=== PATIENT | female | born 1995 | race Caucasian/White ===

== ENCOUNTER 2023-12-03 05:57 | Inpatient (IN) | payer OTHER, SELFPAY ==
[2023-12-03] VITALS (119 sets, daily range): BP systolic 82–149; BP diastolic 37–113; PULSE 74–120; RESP 12–20; TEMP 36.3–37.2; O2SAT 95–100; BMI 40.1
--- NOTE | 2023-12-03 06:43 | LDADM ---
This patient, Belinda Reid, was admitted to Labor/Delivery/Recovery 104 on 12/03/23 at 05:57. Plans for labor, pain management and were discussed with patient. Patient/family oriented to hospital policies and general routines including ID bracelet, bed and alarms, visiting hours, pain management, procedures, bathroom and other care routines, personal items, smoking policy, room service/diet and guest tray routines, infant security routines, and visiting hours. Patient/Family are encouraged to report perceived risks to care and to ask questions if they do not understand what they are told or what they should do. See OBIX for further documentation.
[2023-12-03] MEDS: OXYTOCIN 30 UNITS/NS 500 ML 30 UNITS/500 ML BAG IV CONT (07:00)
[2023-12-03] MEDS: LACTATED RINGERS 1,000 ML 125 ML IV CONT ×3 (07:01→13:00)
[2023-12-03 07:08] LABS: Basophils Percent Auto 0.4 % (0.2-1.2); Eosinophils Percent Auto 0.4 % (0-4.4); Hematocrit 35.4 % (37.0-47.0); Hemoglobin 11.1 g/dL (12.0-15.0); Immature Granulocyte Absolute 0.03 K/mm3 (0.00-0.031); Immature Granulocyte Percent A 0.4 % (0-0.5); Lymphocytes Absolute Auto 1.66 K/mm3 (0.9-3.2); Lymphocytes Percent Auto 19.5 % (18.3-44.2); Mean Corpuscular HGB Conc 31.4 g/dl (32-36); Mean Corpuscular Hemoglobin 29.4 pg (26-34); Mean Corpuscular Volume 93.7 fl (80-100); Mean Platelet Volume 10.8 fl (7.4-10.4); Monocytes Absolute Auto 0.7 K/mm3 (0.1-0.6); Neutrophils Absolute Auto 6.1 K/mm3 (1.3-6.7); Neutrophils Percent Auto 71.3 % (45.5-73.1); Platelet Count Result 247 k/mm3 (150-375); Red Blood Count 3.78 M/mm3 (4.2-5.4); Red Cell Distribution Width 13.8 % (11.5-14.5); White Blood Count 8.5 K/mm3 (4.5-10.0)
[2023-12-03 07:17] LABS: Alanine Aminotransferase 23 U/L (6-35); Albumin Level 3.6 g/dL (3.5-5.1); Alkaline Phosphatase 184 U/L (38-126); Anion Gap 10 mmol/L (8-16); Aspartate Amino Transferase 23 U/L (14-36); Bilirubin,Total 0.4 mg/dL (0.2-1.3); Blood Urea Nitrogen 7 mg/dL (7-17); Calcium 8.7 mg/dL (8.4-10.2); Carbon Dioxide 18 mmol/L (22-30); Chloride 106 mmol/L (98-107); Estimated CRCL calculation 150 ml/min; Estimated Glomerular Filt Rate > 60; Glucose 83 mg/dL (65-110); Potassium 3.8 mmol/L (3.4-5.0); Sodium 134 mmol/L (137-145)
--- NOTE | 2023-12-03 08:16 | WPDOBADMIT ---
Obstetrics - Admit Note Admission Note: record reviewed. No pertinent additions to the history and/or any subsequent changes in the physical findings that are not consistent with the expected course of the were found. Additions to the history and/or subsequent changes in the physical findings follow. IOl, gestational HTN, SVE /-1 AROM moderate amount of clear odorless fluid
[2023-12-03] MEDS: SODIUM CHLORIDE 0.9% IV 300 ML 600 ML I-UTERINE (09:20)
--- NOTE | 2023-12-03 09:48 | WPDANESEPP ---
Anes - Eval Pre Procedure Procedure: labor pain management Date/Time: 12/03/23 09:48 Surgeon: April Preop Diagnosis: pain during labor Pre Op Diagnosis: IOL Patient Data Age: 28 Gender: F Height: 1.68 m Weight: 113 kg Last Vital Signs Temp 97.4 F L 12/03/23 07:30 Pulse 95 12/03/23 09:46 BP 125/59 L 12/03/23 09:46 Pulse Ox 96 12/03/23 09:45 O2 Del Method Room Air 12/03/23 06:40 Allergies Allergy/AdvReac Type Severity Reaction Status Date / Time succinylcholine Allergy Unknown Other Verified 12/03/23 06:53 Home Medications Medication Instructions Recorded Confirmed Type levothyroxine 50 mcg tablet 50 mcg PO DAILY 11/23/23 12/03/23 History vits no.126-ferrous fum 1 tablet PO DAILY 11/23/23 12/03/23 History 28 mg iron-folic acid 800 mcg tablet (Classic ) pantoprazole 40 mg tablet,delayed 40 mg PO DAILY 12/03/23 12/03/23 History release Laboratory Tests 12/03/23 12/03/23 06:18 06:19 WBC 8.5 K/mm3 (4.5-10.0) RBC 3.78 L M/mm3 (4.2-5.4) Hgb 11.1 L g/dL (12.0-15.0) Hct 35.4 L % (37.0-47.0) MCV 93.7 fl (80-100) MCH 29.4 pg (26-34) MCHC 31.4 L g/dl (32-36) RDW 13.8 % (11.5-14.5) Plt Count 247 k/mm3 (150-375) MPV 10.8 H fl (7.4-10.4) Immature Gran % (Auto) 0.4 % (0-0.5) Neut % (Auto) 71.3 % (45.5-73.1) Lymph % (Auto) 19.5 % (18.3-44.2) [place] % (Auto) 8.0 % (2.6-8.5) Eos % (Auto) 0.4 % (0-4.4) Baso % (Auto) 0.4 % (0.2-1.2) Lymph # (Auto) 1.66 K/mm3 (0.9-3.2) [place] # (Auto) 0.7 H K/mm3 (0.1-0.6) Eos # (Auto) 0.0 K/mm3 (0-0.3) Baso # (Auto) 0.0 K/mm3 (0.0-0.1) Abs Immat Gran (auto) 0.03 K/mm3 (0.00-0.031) Absolute Neuts (auto) 6.1 K/mm3 (1.3-6.7) Absolute Nucleated RBC 0.0 K/mm3 (0.0-0.012) Nucleated RBC % 0.0 % (0.0-0.2) Sodium 134 L mmol/L (137-145) Potassium 3.8 mmol/L (3.4-5.0) Chloride 106 mmol/L (98-107) Carbon Dioxide 18 L mmol/L (22-30) Anion Gap 10 mmol/L (8-16) BUN 7 mg/dL (7-17) Creatinine 0.60 L mg/dL (0.7-1.0) Estim Creat Clear Calc 150 ml/min Estimated GFR > 60 (59 - ) Glucose 83 mg/dL (65-110) Calcium 8.7 mg/dL (8.4-10.2) Total Bilirubin 0.4 mg/dL (0.2-1.3) AST 23 U/L (14-36) ALT 23 U/L (6-35) Alkaline Phosphatase 184 H U/L (38-126) Total Protein 8.0 g/dL (6.3-8.2) Albumin 3.6 g/dL (3.5-5.1) RPR Pending Blood Type A Positive Antibody Screen Negative Patient hx anesthesia problems: none Family hx anesthesia problems: none Results Review: All pre-operative results and documents have been reviewed as part of the pre-operative evaluation. [facility] Past Medical History Medical History Calculus of gallbladder with acute on chronic cholecystitis Chronic cholecystitis with calculus Family history of cholecystectomy Hypothyroid Pain during labor Family History Family History Mother Hypertension Hypothyroid Grandparent Hypertension Grandparent No problems noted. Father Hypertension Hypothyroid Social History Social History Smoking status: Never smoker Alcohol intake: never Substance use: never Do You Feel Safe in your Home?: Yes Lack of Transportation: No Lack of Food: Never True Current Housing: I Have Housing Concerned About Future Housing: No Difficulty Paying Gas/Electric Bills: No Difficulty Paying for Meds: No Currently Unemployed: No Education: High School Diploma/GED Difficulty w/ Childcare or Family Care: No Spiritual car
[2023-12-03] MEDS: SODIUM CHLORIDE 0.9% IV 1,000 ML 150 ML I-UTERINE (09:50)
[2023-12-03 10:58] LABS: Rapid Plasma Reagin Non-Reactive (NonReactive)
--- NOTE | 2023-12-03 12:22 | PM.IMHP ---
H&P: HPI History of Present Illness Date/Time: 12/03/23 12:22 Chief Complaint: Labor Narrative: this patient is a 28-year-old multiparous female at term who was induced for gestational hypertension. The patient has begun to have vaginal bleeding. She has some nonreassuring heart tones. She passed a clot earlier after rupture of membranes. We are concerned about abruption. She denies any nausea, vomiting, fever, chills. She denies any chest pain shortness of breath the she understands the procedure. It was explained to her. She understands the procedure. Was explained to her in detail. She understands risk. She understands there is maker that result in hospitalization, more surgery, and severe illness. She understands risk of hemorrhage infection. We have agreed to proceed with delivery. She she understands risks, benefits, and alternatives. Review of Systems Review of Systems: All systems reviewed & are unremarkable except as noted in HPI and below Constitutional: Constitutional: Denies chills, Denies fatigue, Denies fever(s) and Denies weakness Eyes: Eyes: Denies blurry vision, Denies change in vision, Denies loss of peripheral vision, Denies loss of vision, Denies other visual disturbances and Denies eye pain ENT: Denies vertigo, Denies dizziness, Denies hearing loss, Denies mouth pain, Denies nasal obstruction, Denies neck mass and Denies neck pain Cardiovascular: Cardiovascular: Denies chest pain, Denies diaphoresis, Denies syncope, Denies leg edema and Denies dyspnea Respiratory: Respiratory: Denies chest congestion, Denies cough, Denies hemoptysis, Denies dyspnea and Denies wheezing Gastrointestinal: Gastrointestinal: Denies abdominal pain, Denies constipation, Denies diarrhea, Denies nausea and Denies vomiting Genitourinary: Genitourinary: Denies hematuria, Denies change in libido, Denies nocturia, Denies genital lesions, Denies flank pain and Denies urinary urgency Musculoskeletal: Musculoskeletal: Denies abnormal gait, Denies back pain, Denies myalgias, Denies arthralgias, Denies joint swelling, Denies muscle weakness and Denies neck pain Integumentary/Breasts: Skin/Breast: Denies swelling, Denies breast pain, Denies breast mass, Denies dry skin, Denies nipple discharge, Denies unusual bruising and Denies jaundice Neurologic: Denies Neuro-related abnormal movements, Denies Abnormal speech present, Denies abnormal gait, Denies behavioral changes, Denies confusion, Denies vertigo, Denies dizziness, Denies syncope, Denies loss of vision, Denies memory loss, Denies convulsions and Denies weakness Psychiatric: Psychiatric: Denies abnormal sleep pattern, Denies behavioral changes, Denies change in libido, Denies confusion, Denies depression, Denies anhedonia and Denies memory loss Endocrine: Endocrine: Reports no additional endocrine complaints, Denies change in libido and Denies fatigue Hematologic/Lymphatic: Hematologic/Lymphatic: Reports no additional hematologic/lymphatic complaints Allergic/Immunologic: Allergic/Immunologic: Reports no additional allergic/immunologic complaints and Denies wheezing PMFSH Past Medical History Medical History Calculus of gallbladder with acute on chronic cholecystitis Chronic cholecystitis with calculus Family history of cholecystectomy Hypothyroid Pain during labor Family History Family History Mother Hypertension Hypothyroid Grandparent Hypertension Grandparent No problems noted. Father Hypertension Hypothyroid Social History Social History Smoking status: Never smoker Alcohol intake: never Substance use: never Do You Feel Safe in your Home?: Yes Lack of Transportation: No Lack of Food: Never True Current Housing: I Have Housing Concerned About Fu
--- NOTE | 2023-12-03 12:24 | P.PNAN_ITS ---
Anes - Eval Final PreProcedure Day of Procedure 12/03/23 12:24 Patient weight: morbidly obese Heart: regular rate and rhythm Lungs: clear to auscultation Airway: Mallampati scale class II Neurological: alert and oriented ASA classification: III Emergent: no Anesthetic plan: proceed Anesthesia type and monitoring: regional epidural and standard monitoring Results Review: All pre-operative results and documents have been reviewed as part of the pre- operative evaluation. Informed Consent: The patient's anesthetic plan and its attendant risks and benefits were discussed with the patient/family/POA. Questions were solicited and answers provided to the satisfaction of the patient/family/POA.
--- NOTE | 2023-12-03 12:25 | WPDHPUPDATE1 ---
History and Physical Update Update Date/Time: 12/03/23 12:25 History and Physical has been reviewed, including an updated exam of the patient. There are NO changes in the patient's condition. Risks, benefits, and alternatives have been discussed and questions answered. Patient agrees to proceed with procedure.
[2023-12-03] MEDS: ceFAZolin 2 GM/D5W 50 ML 2 GM/50 ML BAG IVPB (12:33)
--- NOTE | 2023-12-03 13:38 | W.PM.OBCSD ---
OB - Delivery Note Procedure Delivery date: 12/03/23 Pre-op diagnosis: Other (Abruption) Post-op Diagnosis: Same Induction method: AROM and Per Pitocin Protocol Delivery monitor: Internal FHT and Internal Uterine Procedure Performed: Primary Surgeon: Bonifacio Chen MD Anesthesia type: Epidural Description of Procedure/Findings: The patient was taken the operating room.? She was prepped and draped in dorsal supine position with a leftward tilt.? This was done after spinal anesthetic was applied.? A low-transverse skin incision was made and carried down till of the fascia with the knife.? The fascial incision was made with the knife.? The fascial incision was extended laterally with Diaz scissors.? The fascia was tented upward superiorly and inferiorly the rectus muscles were dissected off bluntly.? The rectus muscles were the midline.? The preperitoneal fat and peritoneum were dissected open bluntly at the superior aspect of the rectus muscles.? The peritoneal incision was extended superior and inferior with good position of bladder.? The uterine incision was made with a scalpel down to the level of the amniotic cavity.? The amniotic cavity was entered bluntly.? The infant was delivered.? The cord was clamped and cut and the infant was handed off to waiting pediatric staff.? Cord bloods were obtained.? The placenta was removed manually.? The uterus was exteriorized.? The uterus was cleared of all clots, debris and membranes.? The uterus was closed in 0 Vicryl running lock fashion.? An imbricating over a was placed along the incision line as well.? The uterus was returned to the abdomen.? The gutters were cleared of all clots and debris.? The fascia was closed with 0 Vicryl running fashion.? The subcutaneous tissue was irrigated pinpoint bleeders were cauterized.? The skin was closed with subcuticular absorbable janie.? The skin incision line was covered with glue.? The patient tolerated the procedure well.? She has taken recovery room in stable condition.? Sponge lap and needle counts were correct x2.? Specimen: Yes Estimated Blood Loss: 450 Pathology: Yes Complications: No immediate complications Condition: Stable Baby Weeks of gestation at delivery: 37
[2023-12-03] MEDS: OXYTOCIN 30 UNITS/NS 500 ML 30 UNITS/500 ML BAG 125 UNITS IV CONT (14:30)
[2023-12-03] MEDS: AZITHROMYCIN 500 MG/NS 250 ML 500 MG/250 ML BAG 250 MG IVPB (15:42)
--- NOTE | 2023-12-03 16:13 | PC.NURSE ---
heart tones obtained in OR after moving patient to operating table. FHT 145 at 1236. Continued prepping patient in a normal fashion.
[2023-12-03] MEDS: DOCUSATE SODIUM 100 MG CAPSULE PO (17:36)
--- NOTE | 2023-12-03 17:39 | OBPPTRN ---
Patient transferred to post room #292 via wheelchair with baby Kassie in crib with mom and partner Jb present also. Oriented to unit, room, information board, rooming in, admission packet and security measures. Patient verbalizes understanding.
[2023-12-03] MEDS: IBUPROFEN 600 MG TABLET PO (18:07)
[2023-12-03] MEDS: ONDANSETRON INJ 4 MG/2 ML VIAL IV PUSH (18:44)
[2023-12-04] VITALS (7 sets, daily range): BP systolic 109–123; BP diastolic 62–79; PULSE 90–95; RESP 16; TEMP 36.5–37.2; O2SAT 98–100
[2023-12-04] MEDS: IBUPROFEN 600 MG TABLET PO ×3 (01:30→16:06)
[2023-12-04 04:45] LABS: Basophils Percent Auto 0.2 % (0.2-1.2); Eosinophils Percent Auto 0.1 % (0-4.4); Hemoglobin 8.4 g/dL (12.0-15.0); Immature Granulocyte Absolute 0.05 K/mm3 (0.00-0.031); Immature Granulocyte Percent A 0.5 % (0-0.5); Lymphocytes Absolute Auto 1.36 K/mm3 (0.9-3.2); Lymphocytes Percent Auto 13.9 % (18.3-44.2); Mean Corpuscular HGB Conc 31.1 g/dl (32-36); Mean Corpuscular Hemoglobin 29.4 pg (26-34); Mean Corpuscular Volume 94.4 fl (80-100); Mean Platelet Volume 11.2 fl (7.4-10.4); Monocytes Absolute Auto 0.9 K/mm3 (0.1-0.6); Monocytes Percent Auto 9.5 % (2.6-8.5); Neutrophils Absolute Auto 7.4 K/mm3 (1.3-6.7); Neutrophils Percent Auto 75.8 % (45.5-73.1); Platelet Count Result 191 k/mm3 (150-375); Red Blood Count 2.86 M/mm3 (4.2-5.4); White Blood Count 9.8 K/mm3 (4.5-10.0)
[2023-12-04] MEDS: LEVOTHYROXINE SODIUM 50 MCG TABLET PO (06:35)
--- NOTE | 2023-12-04 07:53 | PM.OBPNVD ---
OB - PN: Subj Subjective Date/time seen: 12/04/23 07:53 Interval history: pp day 1 doing well OB - PN: Obj Data Labs 12/04/23 04:01 12/03/23 06:19 Labs: Laboratory Results - last 24 hr 12/03/23 12/04/23 06:18 04:01 WBC 9.8 RBC 2.86 L Hgb 8.4 L Hct 27.0 L MCV 94.4 MCH 29.4 MCHC 31.1 L RDW 14.0 Plt Count 191 MPV 11.2 H Immature Gran % (Auto) 0.5 Neut % (Auto) 75.8 H Lymph % (Auto) 13.9 L [place] % (Auto) 9.5 H Eos % (Auto) 0.1 Baso % (Auto) 0.2 Lymph # (Auto) 1.36 [place] # (Auto) 0.9 H Eos # (Auto) 0.0 Baso # (Auto) 0.0 Abs Immat Gran (auto) 0.05 H Absolute Neuts (auto) 7.4 H Absolute Nucleated RBC 0.0 Nucleated RBC % 0.0 RPR Non-reactive Blood Type A Positive Antibody Screen Negative OB - PN A/P Plan day: 1 Plan: routine care Time Spent With Patient Time: Total time spent is greater than 50% in coordination of care (as documented) at patient's floor/unit and/or counseling patient: Review of Systems Review of Systems: All systems reviewed & are unremarkable except as noted in HPI and below Exam Const: General: cooperative and healthy appearing Resp: Effort & Inspection: normal respiratory effort Cardio: Rate: regular rate GI: Other: incision CDI Skin: General skin exam: normal color Neuro: General: patient oriented x3
--- NOTE | 2023-12-04 10:06 | WPDANLDNPN2 ---
Anes-Prog Note L&D-Neuraxial Date/Time: 12/04/23 10:06 Neuraxial medications: epidural PF morphine Opiod-related complaints: none Patient feedback: Patient satisfied with post-operative pain management.
--- NOTE | 2023-12-04 10:06 | WPDANLDPN2 ---
Anes-Prog Note L&D Date/Time: 12/04/23 10:06 Comfortable throughout: section Neuraxial method: epidural Epidural/Spinal procedure site: clean & non-tender Neuro status: Neuro function grossly intact. Cardiovascular status: normal Respiratory status: normal Airway patency: baseline Mental status: baseline Post-Op hydration status: normal Vital Signs: Last Vital Signs Temp 36.9 C 12/04/23 08:30 Pulse 92 12/04/23 08:30 Resp 16 12/04/23 08:30 BP 109/62 12/04/23 08:30 Pulse Ox 98 12/04/23 08:30 O2 Del Method Room Air 12/04/23 08:30 Pain score (VAS): 2 I/O: Intake & Output 12/03/23 12/04/23 12/04/23 23:59 07:59 15:59 Intake Total 500 Output Total 250 1500 Balance 250 -1500 Post-procedural complaints: none Patient feedback: Patient satisfied with anesthetic care.
[2023-12-04] MEDS: MULTIVIT/MIN/PREN/FOL AC/IRON TABLET 1 TAB PO (10:24)
[2023-12-04] MEDS: DOCUSATE SODIUM 100 MG CAPSULE PO ×2 (10:24→17:49)
[2023-12-04] MEDS: PANTOPRAZOLE 40 MG TABLET PO (10:24)
[2023-12-04] MEDS: FERROUS SULFATE 325 MG TABLET DR PO ×2 (10:25→17:49)
[2023-12-04] MEDS: HYDROcodone/acetaminophen (*CRX) 5-325 MG TABLET 1 TAB PO ×3 (11:28→20:00)
[2023-12-05] MEDS: IBUPROFEN 600 MG TABLET PO ×3 (02:35→19:25)
[2023-12-05] MEDS: HYDROcodone/acetaminophen (*CRX) 5-325 MG TABLET 1 TAB PO ×3 (02:35→19:25)
[2023-12-05 05:30] VITALS: BP 117/72; PULSE 87; RESP 16; TEMP 36.4
[2023-12-05] MEDS: LEVOTHYROXINE SODIUM 50 MCG TABLET PO (06:30)
[2023-12-05 07:50] VITALS: BP 139/82; PULSE 90; RESP 20; TEMP 36.3; O2SAT 100
--- NOTE | 2023-12-05 09:45 | PM.OBPNVD ---
OB - PN: Subj Subjective Date/time seen: 12/05/23 09:45 Interval history: pp day 2 doing well OB - PN: Obj Data Labs 12/04/23 04:01 12/03/23 06:19 OB - PN A/P Plan day: 2 Plan: routine care Time Spent With Patient Time: Total time spent is greater than 50% in coordination of care (as documented) at patient's floor/unit and/or counseling patient: Review of Systems Review of Systems: All systems reviewed & are unremarkable except as noted in HPI and below Exam Const: General: cooperative and healthy appearing Resp: Effort & Inspection: normal respiratory effort Cardio: Rate: regular rate GI: Other: Incision CDI Skin: General skin exam: normal color Neuro: General: patient oriented x3 Psych: Appearance: grossly normal
[2023-12-05] MEDS: PANTOPRAZOLE 40 MG TABLET PO (10:26)
[2023-12-05] MEDS: DOCUSATE SODIUM 100 MG CAPSULE PO ×2 (10:26→17:36)
[2023-12-05] MEDS: FERROUS SULFATE 325 MG TABLET DR PO ×2 (10:26→17:36)
[2023-12-05] MEDS: MULTIVIT/MIN/PREN/FOL AC/IRON TABLET 1 TAB PO (10:26)
[2023-12-05 11:46] VITALS: BP 119/70; PULSE 91; RESP 18; TEMP 36.8; O2SAT 99
[2023-12-05 16:00] VITALS: BP 118/64; PULSE 92
[2023-12-05 19:33] VITALS: BP 117/77; PULSE 91; RESP 18; TEMP 36.9; O2SAT 99
[2023-12-06 01:40] VITALS: BP 111/72; PULSE 94; RESP 18; TEMP 36.9; O2SAT 100
[2023-12-06] MEDS: IBUPROFEN 600 MG TABLET PO (05:12)
[2023-12-06] MEDS: HYDROcodone/acetaminophen (*CRX) 5-325 MG TABLET 1 TAB PO ×2 (05:12→09:05)
[2023-12-06 05:15] VITALS: BP 114/74; PULSE 89; RESP 16; TEMP 36.8; O2SAT 98
[2023-12-06] MEDS: LEVOTHYROXINE SODIUM 50 MCG TABLET PO (06:54)
[2023-12-06 07:35] VITALS: BP 114/69; PULSE 86; RESP 16; TEMP 37.4; O2SAT 100
--- NOTE | 2023-12-06 09:00 | PC.NURSE ---
Patient viewed the discharge video Mother & Baby Care, The First Two Weeks online. Patient was given the opportunity and encouraged to ask questions. Patient verbalized understanding of information shared and has been given the mother/baby guide for home reference.
--- NOTE | 2023-12-06 09:04 | PC.NURSE ---
[id number] Introductions were made, then consulted with patient to assess needs related to . Discussed with mother her?plans to feed?her infant, the?experience so far, and is pumping >30mls of breast milk at this time. is in the nursery and parents state the infant's mouth is small and she has difficulty getting the nipple in her mouth. Mother has been using a nipple shield and states she used a nipple shield with one of her other infants for the full journey. Reviewed waking, stimulating, and encouraged the benefits of [id number]. Discussed risks and benefits along with protecting the milk supply. Resources provided for inpatient and outpatient services with the feeding sheet, mom/baby guide, and name written on the communication board. Parents voiced understanding of information and will call if there is a request for assistance.
[2023-12-06] MEDS: MULTIVIT/MIN/PREN/FOL AC/IRON TABLET 1 TAB PO (09:05)
[2023-12-06] MEDS: PANTOPRAZOLE 40 MG TABLET PO (09:05)
[2023-12-06] MEDS: DOCUSATE SODIUM 100 MG CAPSULE PO (09:05)
[2023-12-06] MEDS: FERROUS SULFATE 325 MG TABLET DR PO (09:05)
--- NOTE | 2023-12-06 09:05 | PM.OBPNVD ---
OB - PN: Subj Subjective Date/time seen: 12/06/23 09:05 Interval history: pp day 2 doing well Patient comments: no complaints, pain well controlled, incisional pain, tolerating diet and flatus present OB - PN: Obj Data Labs 12/04/23 04:01 12/03/23 06:19 OB - PN A/P Plan day: 3 Plan: routine care, discharge home and other Comments: Incision check in one week. Given precautions Time Spent With Patient Time: Total time spent is greater than 50% in coordination of care (as documented) at patient's floor/unit and/or counseling patient: Exam Const: General: comfortable, no acute distress and alert Resp: Effort & Inspection: normal respiratory effort Auscultation: no crackles, no rales and no rhonchi Cardio: Rate: regular rate Heart sounds: no click, no murmurs and no rubs GI: Inspection: non-distended GI Palp: No Tenderness to palpation present (GI) Auscultation: normal bowel sounds Other: Incision - CDI Extrem: General: normal to inspection, no pedal edema and no calf tenderness
--- NOTE | 2023-12-06 09:06 | PM.OBDSVD ---
DS: Admitting Diagnosis Discharge Date 12/06/2023 Admitting Diagnosis Gestational hypertension DS: Discharge Diagnosis Discharge Diagnosis (1) delivery delivered: Code(s): O82 - Encounter for delivery without indication Status: Acute OB - DS: Summary OB Procedures : NST, PIH Mgmt and Ultrasound OB Procedures Intrapartum: OB Procedures: : None Peripartum Data Procedures: Procedures Operation Date: 12/03/23 12:30 Actual Procedure Side Surgeon p Section Not Applicable Bonifacio Chen MD Time Spent with Patient Time attestation: Total time spent providing and/or coordinating discharge services: DS: Data Data Completed and Pending Pending studies at discharge: Pending at discharge 12/03/23 13:49 Surgical [PTH] Routine Discharge Plan Discharge Discharging Clinician: Bonifacio Chen Patient Disposition: Home, Self-Care Activity: pelvic rest Diet: regular Patient Instructions: Antibiotic Form Stand Alone Forms: General Discharge Information Follow-up/Referrals: Bonifacio Chen MD [Physician] - Discharge Medications: New oxycodone-acetaminophen 5-325 mg tablet 1 tablet PO Q4H PRN (Reason: pain) Qty: 25 0RF Continued levothyroxine 50 mcg Tablet 50 mcg PO DAILY Classic 28 mg iron- 800 mcg Tablet 1 tablet PO DAILY pantoprazole 40 mg tablet,delayed release (DR/EC) 40 mg PO DAILY Date of admission: 12/03/23 05:57 Primary Care Provider: UNKNOWN,DOCTOR Admitting Provider: Bonifacio Chen Attending physician on admission: Bonifacio Chen Condition: Stable
[2023-12-07 10:12] VITALS: BP 137/83; PULSE 84; RESP 18; TEMP 37.3; O2SAT 100
== END 2023-12-06 12:00 | disposition home or self-care (01) | DRG 788 ==
LOC: ANHLDR 06:00 → ANHOB2 16:03
PROVIDERS: Admitting Provider Obstetrics & Gynecology; Visit Provider Obstetrics & Gynecology
PROC: 10D00Z1 Extraction of Products of Conception, Low, Open Approach (ICD-10-PCS; CPT 59514; principal; 2023-12-03 12:30)
DX: O13.4 Gestational [pregnancy-induced] hypertension without significant proteinuria, complicating childbirth (principal); Z37.0 Single live birth; Z3A.37 37 weeks gestation of pregnancy; O45.93 Premature separation of placenta, unspecified, third trimester
CPT/HCPCS: 36415; 80053; 85025; 86592; 86850; 86900; 86901; 88307; A9270; J0456; J0690; J1885; J2274; J2405; J2590; J2795; J7030; J7120